=== PATIENT | female | born 1960 | race Caucasian/White ===

== ENCOUNTER 2016-12-22 17:30 | Emergency (ER) | payer MEDICAID, OTHER ==
[~2016-12-22] VITALS: Ht 160 cm; Wt 54.5 kg
[~2016-12-22 17:30] MED LIST: ACET1TAB16 PO; PROC10TA10 PO
[2016-12-22 17:36] VITALS: Ht 160 cm; Wt 54.5 kg
[2016-12-22 18:53] VITALS: BP 150/71; PULSE 70; RESP 16; TEMP 98.7
[2016-12-22] MEDS ORDERED: ONDANSETRON (ODT) 4 MG TAB ODT STA (19:17)
[2016-12-22] MEDS ORDERED: ONDA4TAB8 PO (19:22)
[2016-12-22] MEDS ORDERED: IBUP-1542 PO (19:22)
[2016-12-22] MEDS ORDERED: LORAZEPAM 2 MG INJ IM ONE (19:30)
[2016-12-22] MEDS ORDERED: OXYCODONE/ACETAMINOPHEN (5/325) TAB PO ONE (19:30)
--- NOTE | 2016-12-22 20:36 | ERD ---
ER Documentation Chief Complaint Date/Time DATE: 12/22/16 TIME: 20:35 Chief Complaint Pt with CP B leg weakness X 2 days, pt reports 2 falls. HPI 56-year-old woman initially triaged as chest pain is complaining of complete body ache and anterior thigh pain 2 days. She also states she is suffering from anxiety. She denies suicidal homicidal ideation, denies chest pain, no cough, no weight loss, no fevers or chills, no vomiting or diarrhea. Patient has a long history of chronic pain syndrome, opioid abuse, and benzodiazepine dependence. Her daughter is at the bedside and states she has in the past been referred to a pain specialist but has not followed up with one. ROS All systems reviewed and are negative except as per history of present illness. Medications Home Meds Active Scripts Ondansetron Hcl* (Zofran*) 4 Mg Tablet, 4 MG PO Q8H Y for NAUSEA AND/OR VOMITING , #12 TAB Prov:MAGGIE MARTINEZ MD 12/22/16 Ibuprofen* (Motrin*) 600 Mg Tab, 600 MG PO Q8 for PAIN AND/OR INFLAMMATION, #30 TAB Prov:MAGGIE MARTINEZ MD 12/22/16 Discontinued Scripts Prochlorperazine* (Prochlorperazine*) 10 Mg Tablet, 10 MG PO Q6 Y for NAUSEA AND /OR VOMITING, #10 TAB Prov:EULA CORREA [employer] 05/14/16 Acetaminophen/Caffeine (Excedrin Tension Headache Cplt) 1 Each Tablet, 1 EACH PO Q6, #20 TAB Prov:EULA CROREA. [employer] 05/14/16 Allergies Allergies: Coded Allergies: No Known Allergy (Unverified , 12/22/16) PMhx/Soc Anxiety, chronic pain syndrome, hypertension, opioid dependent History of Surgery: No Anesthesia Reaction: No Hx Neurological Disorder: No Hx Respiratory Disorders: No Hx Cardiac Disorders: Yes (HTN) Hx Psychiatric Problems: No Hx Miscellaneous Medical Probl: Yes (RHEUMATOID ARTHRITIS, HEP C) Hx Alcohol Use: No Hx Substance Use: No Hx Tobacco Use: Yes Smoking Status: Current some day smoker FmHx Family History: No diabetes Physical Exam Vitals Vital Signs Date Time Temp Pulse Resp B/P Pulse Ox O2 Delivery O2 Flow Rate FiO2 12/22/16 18:53 98.7 70 16 150/71 97 Room Air 12/22/16 17:36 98.7 103 20 131/71 95 Physical Exam GENERAL: Well-developed, well-nourished, appears anxious, mild discomfort HEENT: Moist mucous membranes, pink conjunctiva, no cervical spine tenderness or step-off deformities, no goiter, no jaundice or icterus, extraocular movements intact without pain. No submandibular induration, and no pharyngeal erythema NEURO: Alert and oriented 3, cranial nerves II through XII intact bilaterally, pupils equal round reactive to light, no focal deficits or facial asymmetry, sensation intact distally Strength 5/5 in upper and lower extremities bilaterally CARDIAC: Regular rate and rhythm, no murmurs rubs or gallops LUNGS: Clear bilaterally no wheezing crackles or stridor ABDOMEN: Soft nontender, no guarding, no rigidity, no rebound, no psoas sign no obturator sign. Normoactive bowel sounds SKIN: Warm and dry to touch, no abrasions, contusions, or hematomas, no lacerations, no ecchymosis, no target lesions, and without ulcers EXTREMITIES: No clubbing cyanosis or edema, calves are bilaterally symmetrical, no Homans sign, no popliteal cord sign. Distal pulses equal and bilateral PSYCH: Anxious Results 24 hrs Current Medications Medications (Trade) Dose Ordered Sig/Jelly Route PRN Reason Start Time Stop Time Status Last Admin Dose Admin Lorazepam (Ativan) 0.5 mg ONCE ONCE IM 12/22/16 19:30 12/22/16 19:31 DC 12/22/16 19:34 Oxycodone/ Acetaminophen (Percocet (5/ 325)) 1 tab ONCE ONCE PO 12/22/16 19:30 12/22/16 19:31 DC 12/22/16 19:33 Ondansetron HCl (Zofran Odt) 4 mg ONCE STAT ODT 12/22/16 19:17 12/22/16 19:18 DC 12/22/16 19:33 Procedures/MDM Patient was placed on youth nutritional monitor rhythm strip revealed a sinus rhythm at about 90 bpm with upright P and T waves. Patient was afebrile. EKG performed, read by me: 91 bpm, normal sinus rhythm, normal axis, no acute ST segment changes, narrow QRS complex, with good R-wave progression in precordial leads. I administered lorazepam 0.5 mg intramuscular injection, Percocet 1 tablet p.o. for pain control, and Zofran 4 mg ODT sublingual for nausea although she had no episodes of vomiting while here. Outpatient management recommendations were provided to the patient. Differential diagnoses considered, included but not limited to acute coronary syndrome, pulmonary embolism, aortic dissection, abdominal aortic aneurysm, sepsis, stroke, meningitis, encephalitis, pneumonia, appendicitis, cholecystitis , bowel obstruction, pyelonephritis, nephrolithiasis, cystitis, as well as metabolic, hematologic, and electrolyte abnormalities. As well as abscess, cellulitis, fractures, and dislocations. Patient feels much better at this time, and vital signs are normal, symptoms have improved. I did give strict instructions to return to the ED if symptoms continue or worsen, patient will otherwise follow-up with primary care physician. Patient understood instructions and agreed to plan. Departure Diagnosis: Primary Impression: Chronic pain Chronic pain type: chronic pain syndrome Qualified Code: G89.4 - Chronic pain syndrome Additional Impression: Anxiety Condition: Good Patient Instructions: Chronic Pain Referrals: [facility] YOU HAVE RECEIVED A MEDICAL SCREENING EXAM AND THE RESULTS INDICATE THAT YOU DO NOT HAVE A CONDITION THAT REQUIRES URGENT TREATMENT IN THE EMERGENCY DEPARTMENT. FURTHER EVALUATION AND TREATMENT OF YOUR CONDITION CAN WAIT UNTIL YOU ARE SEEN IN YOUR DOCTORS OFFICE WITHIN THE NEXT 1-2 DAYS. IT IS YOUR RESPONSIBILITY TO MAKE AN APPOINTMENT FOR FOLOW-UP CARE. IF YOU HAVE A PRIMARY DOCTOR --you should call your primary doctor and schedule an appointment IF YOU DO NOT HAVE A PRIMARY DOCTOR YOU CAN CALL OUR PHYSICIAN REFERRAL HOTLINE AT IF YOU CAN NOT AFFORD TO SEE A PHYSICIAN YOU CAN CHOSE FROM THE FOLLOWING [facility] [address] [facility] [address] [facility] [address] [facility] [address] [facility] [address] [facility]. [facility]. [address] [facility]. [facility] YOU HAVE RECEIVED A MEDICAL SCREENING EXAM AND THE RESULTS INDICATE THAT YOU DO NOT HAVE A CONDITION THAT REQUIRES URGENT TREATMENT IN THE EMERGENCY DEPARTMENT. FURTHER EVALUATION AND TREATMENT OF YOUR CONDITION CAN WAIT UNTIL YOU ARE SEEN IN YOUR DOCTORS OFFICE WITHIN THE NEXT 1-2 DAYS. IT IS YOUR RESPONSIBILITY TO MAKE AN APPOINTMENT FOR FOLOW-UP CARE. IF YOU HAVE A PRIMARY DOCTOR --you should call your primary doctor and schedule and appointment IF YOU DO NOT HAVE A PRIMARY DOCTOR YOU CAN CALL OUR PHYSICIAN REFERRAL HOTLINE AT . IF YOU CAN NOT AFFORD TO SEE A PHYSICIAN YOU CAN CHOSE FROM THE FOLLOWING [facility] INSTITUTIONS: [facility] [address] [place] [address] [facility] [address] [place] [address] [facility] [address] [place] [address] MAGGIE MARTINEZ MD December 22, 2016 20:36
== END 2016-12-22 20:04 | disposition home or self-care (01) ==
LOC: E/R 17:30
DX: G89.4 Chronic pain syndrome (principal); F41.9 Anxiety disorder, unspecified; I10 Essential (primary) hypertension; F17.210 Nicotine dependence, cigarettes, uncomplicated
CPT/HCPCS: 93005; 96372; 99284; J2060